=== PATIENT | female | born 1960 | race Caucasian/White ===

== ENCOUNTER 2017-10-22 06:35 | Day surgery (SDC) | payer OTHER ==
[~2017-10-22 06:35] MED LIST: CEFAZOLIN 2 GM/50 ML (PMX) 50 ML IVPB; SOD CHLORIDE 0.9% 1,000 ML IV
[2017-10-22] MEDS ORDERED: PROPOFOL 200 MG INJ (07:00)
[2017-10-22] MEDS ORDERED: METOCLOPRAMIDE 10 MG INJ (07:36)
[2017-10-22] MEDS ORDERED: ROPIVACAINE 0.5 % 30 ML VIAL (07:36)
[2017-10-22] MEDS ORDERED: MIDAZOLAM 1 MG/ML 2 ML INJ (07:36)
[2017-10-22] MEDS ORDERED: PROPOFOL 0 ML (07:50)
[2017-10-22] MEDS ORDERED: ROCURONIUM 50 MG INJ (07:50)
[2017-10-22] MEDS ORDERED: NEOSTIGMINE 3 MG/3 ML SYRINGE (07:50)
[2017-10-22] MEDS ORDERED: ONDANSETRON 4 MG INJ (07:51)
[2017-10-22] MEDS ORDERED: KETOROLAC 30 MG INJ (07:51)
[2017-10-22] MEDS ORDERED: CEFAZOLIN 1 GM INJ (07:51)
[2017-10-22] MEDS: BUPIVACAINE 0.25% (MPF) 30 ML INJ (08:00)
[2017-10-22] MEDS ORDERED: HYDROmorphONE (0.2 MG/ML) 10ML SYG IV ×3 (08:30)
[2017-10-22] MEDS ORDERED: LABETALOL HCL 20MG INJ IV (08:30)
[2017-10-22] MEDS ORDERED: DIPHENHYDRAMINE 50 MG INJ IV (08:30)
[2017-10-22] MEDS ORDERED: hydrALAzine 20 MG INJ IV (08:30)
[2017-10-22] MEDS ORDERED: HYDROCODONE/APAP (5/325) TAB PO (08:30)
[2017-10-22] MEDS ORDERED: OXYCODONE/ACETAMINOPHEN (5/325) TAB PO ×2 (08:30)
[2017-10-22] MEDS: MEPERIDINE 25 MG INJ IV (08:41)
[2017-10-22] MEDS: ONDANSETRON 4 MG INJ IV (08:49)
== END 2017-10-22 11:40 | disposition home or self-care (01) ==
LOC: SDS 06:35
DX: K80.10 Calculus of gallbladder with chronic cholecystitis without obstruction (principal); E11.9 Type 2 diabetes mellitus without complications; I10 Essential (primary) hypertension; E78.5 Hyperlipidemia, unspecified
CPT/HCPCS: 47562; 88304

== ENCOUNTER 2018-08-26 09:26 | Day surgery (SDC) | payer OTHER ==
[2018-08-26] MEDS ORDERED: LIDOCAINE 4% SOLUTION 50 ML BTL (10:57)
[2018-08-26] MEDS ORDERED: MIDAZOLAM 1 MG/ML 2 ML INJ ×3 (11:59→12:00)
[2018-08-26] MEDS ORDERED: FENTAnyl 50 MCG/ML VIAL ×2 (11:59)
== END 2018-08-26 12:30 | disposition home or self-care (01) ==
LOC: GIL 09:26
DX: Z12.11 Encounter for screening for malignant neoplasm of colon (principal); K21.0 Gastro-esophageal reflux disease with esophagitis; K57.30 Diverticulosis of large intestine without perforation or abscess without bleeding
CPT/HCPCS: 43239; 88305; 88312; 88313